=== PATIENT | female | born 1975 | race African-American/Black ===

== ENCOUNTER 2017-03-04 20:56 | Emergency (ER) | payer MEDICAID, OTHER ==
[~2017-03-04] VITALS: Ht 165.1 cm; Wt 117.9 kg
[~2017-03-04 20:56] MED LIST: ALBUTEROL SULF8.5 GM INH; IBUPROFEN600 MG ORAL; NAPROSYN500 M1 ORAL; NKM; NORCO 5-325 TA1 EACH ORAL; TRAMADOL HCL50 MG ORAL
--- NOTE | 2017-03-04 21:24 | Emergency Room Report ---
History of Present Illness General Chief Complaint: General Complaint Source: Patient Present Illness HPI Patient presents with bug bites on her lower extremities. There been itching and also she's had some pain in her left foot. Her tetanus is last 8 years ago. She's also complaining about headache. She claims the pain in her leg and foot is 10/10 (but is in no distress.) No calf swelling. No diabetes. H/O headaches. Daughter with bites also. No NVD, dysuria, joint pain, URI sy. Allergies: Coded Allergies: MORPHINE (Verified Allergy, 06/23/12) Patient History Past Medical History: see triage record Social History Narrative with daughter Last Menstrual Period: 02/18/17 Now: No Reviewed Nursing Documentation: PMH: Agreed, PSxH: Agreed Nursing Documentation-PMH Past Medical History: No Stated History Review of Systems All Other Systems: negative except mentioned in HPI Physical Exam Vital Signs Date Time Temp Pulse Resp B/P (MAP) Pulse Ox O2 Delivery O2 Flow Rate FiO2 03/04/17 21:09 98.1 79 16 156/89 100 Room Air Sp02 EP Interpretation: reviewed, normal General Appearance: well appearing, no apparent distress - not appear in pain, smiling Head: normocephalic, atraumatic Eyes: bilateral eye normal inspection, bilateral eye PERRL ENT: hearing grossly normal, normal voice, moist mucus membranes Neck: full range of motion, supple Respiratory: no respiratory distress, speaking full sentences Musculoskeletal: digits/nails normal, gait/station normal, normal range of motion, no calf tenderness, swelling - minimal dorsum L foot Neurologic: alert, motor strength/tone normal, sensory intact, normal gait Psychiatric: mood/affect normal Skin: other - excoriated bites without erythema Medical Decision Making Diagnostic Impression: Primary Impression: Bug bites Qualified Codes: W57.XXXA - Bitten or stung by nonvenomous insect and other nonvenomous arthropods, initial encounter Additional Impression: Headache Qualified Codes: R51 - Headache ER Course Patient with bug bite lesions. Complains of severe pain, but does not appear in distress. DDx: bites, cellulitis, other vasculitic process. VS without fever. No evidence of DVT. Indication for local care and analgesia. Tetanus updated. Patient stable for outpatient observation and treatment. Last Vital Signs Date Time Temp Pulse Resp B/P (MAP) Pulse Ox O2 Delivery O2 Flow Rate FiO2 03/04/17 22:08 98.1 79 16 156/89 100 Room Air Status: improved Disposition: HOME, SELF-CARE Condition: Improved Scripts Diphenhydramine Hcl* (BENADRYL*) 25 Mg Capsule 25 MG ORAL Q6H Y for Itching, #20 CAP Prov: Eleicer Mata M.D. 03/04/17 Bacitracin (Bacitracin) 28.4 Gm Oint...g. 1 APPLIC TOPIC BID, #10 GM Prov: Eliecer Mata M.D. 03/04/17 Acetaminophen (Tylenol) 325 Mg Tablet 650 MG ORAL Q6H Y for Prn Pain/Headache/Temp > 101, #30 TAB 0 Refills Prov: Eliecer Mata M.D. 03/04/17 Eliecer Mata M.D. Mar 04, 2017 21:24
[2017-03-04] MEDS ORDERED: BACITRACIN15 GM TOPIC (21:26)
[2017-03-04] MEDS ORDERED: BENADRYL25 MG ORAL (21:26)
[2017-03-04] MEDS ORDERED: TYLENOL325 MG ORAL (21:26)
[2017-03-04 21:28] VITALS: BP 156/89
[2017-03-04] MEDS ORDERED: Bacitracin Oint UD TOPIC ONE (21:30)
[2017-03-04] MEDS ORDERED: Tetanus/Diptheria/Pertussis Vaccine 0.5ml Syr IM ONE (21:30)
[2017-03-04 22:08] VITALS: BP 156/89
== END 2017-03-04 22:13 | disposition home or self-care (01) ==
LOC: EMR 21:50
DX: S80.862A Insect bite (nonvenomous), left lower leg, initial encounter (principal); R51 Headache; S80.861A Insect bite (nonvenomous), right lower leg, initial encounter; W57.XXXA Bitten or stung by nonvenomous insect and other nonvenomous arthropods, initial encounter; Y93.9 Activity, unspecified; Y92.9 Unspecified place or not applicable; Z88.6 Allergy status to analgesic agent; Z23 Encounter for immunization
CPT/HCPCS: 90471; 90715; 99284

== ENCOUNTER 2018-10-24 17:45 | Emergency (ER) | payer MEDICAID ==
[~2018-10-24] VITALS: Ht 162.6 cm; Wt 127.0 kg
[~2018-10-24 17:45] MED LIST changes: +BACITRACIN15 GM TOPIC; +BENADRYL25 MG ORAL; +TYLENOL325 MG ORAL
--- NOTE | 2018-10-24 18:07 | Emergency Room Report ---
History of Present Illness General Chief Complaint: Chest Pain Source: Patient, Significant Other, Medical Record Present Illness HPI Patient presented with chest pain mainly when she swallows and also much less so when she's breathing that's substernal. This started this morning. She had some back pain last night. She's been taking Gas-X and Tylenol and paty adrianne but they haven't helped at all. The pain is 10/10 at this time. Her risk factors for cardiac disease are smoking. Her last period was a week ago and normal for her she doesn't believe she is at this time. She denies any dysuria. She's been somewhat constipated recently but denies any diarrhea or melena. She denies recent alcohol ingestion. No fevers, chills, palpitations, nausea, vomiting, diarrhea, abdominal pain, shortness of breath, depression, visual changes, headache. Allergies: Coded Allergies: MORPHINE (Verified Allergy, 06/23/12) Patient History Past Medical History: see triage record Social History: Reports: smoking, drug use - [facility] Social History Narrative sig other Last Menstrual Period: 10/18/2018 Reviewed Nursing Documentation: PMH: Agreed; PSxH: Agreed Nursing Documentation-PMH Past Medical History: No History, Except For Review of Systems All Other Systems: negative except mentioned in HPI Physical Exam Vital Signs Date Time Temp Pulse Resp B/P (MAP) Pulse Ox O2 Delivery O2 Flow Rate FiO2 10/24/18 17:51 98.6 81 16 97 Room Air Sp02 EP Interpretation: reviewed, normal General Appearance: well appearing, no apparent distress, GCS 15 Head: normocephalic Eyes: bilateral eye normal inspection, bilateral eye PERRL, bilateral eye EOMI ENT: moist mucus membranes Neck: supple Respiratory: chest non-tender, lungs clear, normal breath sounds Cardiovascular #1: regular rate, rhythm Cardiovascular #2: 2+ radial (R) Gastrointestinal: normal inspection, normal bowel sounds, non tender, no mass, non-distended, overweight Genitourinary: no CVA tenderness Musculoskeletal: back normal, gait/station normal, normal range of motion Neurologic: alert, oriented x3, grossly normal Psychiatric: mood/affect normal Skin: normal inspection, warm/dry Medical Decision Making Diagnostic Impression: Primary Impression: Chest pain Qualified Codes: R07.89 - Other chest pain Additional Impression: Esophagitis ER Course Patient presents with substernal chest pain and also with swallowing. Differential includes acute myocardial infarction, GERD, esophageal spasm, pulmonary embolus, bronchitis, esophagitis amongst others. The patient will be evaluated with EKG, chest x-ray and labs. The patient will be treated with a, Mylanta and lidocaine and Zofran and a small dose of morphine. Based on VS and exam, PE unlikely. EKG sinus rhythm normal EKG. CXR no infiltrates. Normal white count. Minimal anemia. CMP with slightly elevated calcium. Urinalysis negative. Toxicology positive for THC. Refused IV. Medications ordered p.o. Pain now 08/02. Discussed findings. Patient requested more pain medication. [place] given. Patient stable for outpatient observation and treatment. Laboratory Tests Test 10/24/18 18:55 White Blood Count 10.0 K/UL (4.8-10.8) Red Blood Count 4.60 M/UL (4.20-5.40) Hemoglobin 10.2 G/DL (12.0-16.0) L Hematocrit 33.6 % (37.0-47.0) L Mean Corpuscular Volume 73 FL (80-99) L Mean Corpuscular Hemoglobin 22.2 PG (27.0-31.0) L Mean Corpuscular Hemoglobin Concent 30.4 G/DL (32.0-36.0) L Red Cell Distribution Width 16.7 % (11.6-14.8) H Platelet Count 252 K/UL (150-450) Mean Platelet Volume 5.2 FL (6.5-10.1) L Neutrophils (%) (Auto) 73.8 % (45.0-75.0) Lymphocytes (%) (Auto) 19.9 % (20.0-45.0) L Monocytes (%) (Auto) 5.2 % (1.0-10.0) Eosinophils (%) (Auto) 0.5 % (0.0-3.0) Basophils (%) (Auto) 0.7 % (0.0-2.0) Prothrombin Time 10.9 SEC (9.30-11.50) Prothrombin Time INR 1.0 (0.9-1.1) PTT 24 SEC (23-33) Sodium Level 138 MMOL/L (136-145) Potassium Level 3.9 MMOL/L (3.5-5.1) Chloride Level 105 MMOL/L (98-107) Carbon Dioxide Level 26 MMOL/L (21-32) Anion Gap 7 mmol/L (5-15) Blood Urea Nitrogen 5 mg/dL (7-18) L Creatinine 0.9 MG/DL (0.55-1.30) Estimate Glomerular Filtration Rate > 60 mL/min (>60) Glucose Level 87 MG/DL (74-106) Calcium Level 11.4 MG/DL (8.5-10.1) H Total Bilirubin 0.4 MG/DL (0.2-1.0) Aspartate Amino Transferase (AST) 11 U/L (15-37) L Alanine Aminotransferase (ALT) 17 U/L (12-78) Alkaline Phosphatase 92 U/L (46-116) Total Creatine Kinase 132 U/L (26-308) Troponin I 0.006 ng/mL (0.000-0.056) Pro-B-Type Natriuretic Peptide 25 pg/mL (0-125) Total Protein 7.6 G/DL (6.4-8.2) Albumin 3.5 G/DL (3.4-5.0) Globulin 4.1 g/dL Albumin/Globulin Ratio 0.9 (1.0-2.7) L EKG Diagnostic Results Rate: normal Rhythm: NSR ST Segments: no acute changes Rhythm Strip Diag. Results EP Interpretation: yes Rhythm: NSR, no PVC's, no ectopy Chest X-Ray Diagnostic Results Chest X-Ray Diagnostic Results : Chest X-Ray Ordered: Yes # of Views/Limited/Complete: 1 View Indication: Chest Pain EP Interpretation: Yes Interpretation: no consolidation, no effusion, no pneumothorax Impression: No acute disease Electronically Signed by: Electronically signed by Eliecer Mata MD Last Vital Signs Date Time Temp Pulse Resp B/P (MAP) Pulse Ox O2 Delivery O2 Flow Rate FiO2 10/24/18 20:49 98.6 16 137/85 97 Room Air 10/24/18 19:10 81 Status: improved Disposition: HOME, SELF-CARE Condition: Improved Scripts Mag Hydrox/Al Hydrox/Simeth (MAALOX MAXIMUM STRENGTH SUSP) 355 Ml Oral.susp 30 ML PO Q6HR PRN for For Pain, #240 ML Prov: Eliecer Mata MD 10/24/18 Famotidine (PEPCID AC) 20 Mg Tablet 20 MG PO DAILY, #20 TAB Prov: Eliecer Mata MD 10/24/18 Hydrocodone Bit/Acetaminophen 5-325* (NORCO 5-325*) 1 Each Tablet 1 TAB ORAL Q6H PRN for For Pain, #8 TAB 0 Refills Prov: Eliecer Mata MD 10/24/18 Eliecer Mata MD October 24, 2018 18:07
[2018-10-24] MEDS ORDERED: Lidocaine 2% Visc 15ml soln ORAL ONE (18:15)
[2018-10-24] MEDS ORDERED: Mylanta II UD 30ml ORAL ONE (18:15)
[2018-10-24] MEDS ORDERED: fentaNYL 100 mcg/2 mL IV ONE (18:15)
[2018-10-24] MEDS ORDERED: oxyCODONE HCL/Acetaminophen 5/325mg ORAL ONE (18:30)
[2018-10-24 19:05] LABS: BASOPHILS % (AUTO) 0.7 % (0.0-2.0); EOSINOPHILS % (AUTO) 0.5 % (0.0-3.0); HEMATOCRIT 33.6 % (37.0-47.0); HEMOGLOBIN 10.2 G/DL (12.0-16.0); LYMPHOCYTES % (AUTO) 19.9 % (20.0-45.0); MEAN CORPUSCULAR VOLUME 73 FL (80-99); MONOCYTES % (AUTO) 5.2 % (1.0-10.0); NEUTROPHILS % (AUTO) 73.8 % (45.0-75.0); PLATELET COUNT 252 K/UL (150-450); RED CELL DISTRIBUTION WIDTH 16.7 % (11.6-14.8)
[2018-10-24 19:10] VITALS: BP 137/85
[2018-10-24 19:17] LABS: ANION GAP 7 mmol/L (5-15); BLOOD UREA NITROGEN 5 mg/dL (7-18); CALCIUM 11.4 MG/DL (8.5-10.1); CARBON DIOXIDE 26 MMOL/L (21-32); CHLORIDE 105 MMOL/L (98-107); CREATININE 0.9 MG/DL (0.55-1.30); POTASSIUM 3.9 MMOL/L (3.5-5.1); SODIUM 138 MMOL/L (136-145)
[2018-10-24 19:28] LABS: ALANINE AMINOTRANSFERASE 17 U/L (12-78); ALBUMIN 3.5 G/DL (3.4-5.0); ALBUMIN/GLOBULIN RATIO 0.9 (1.0-2.7); ALKALINE PHOSPHATASE 92 U/L (46-116); ASPARTATE AMINO TRANSFERASE 11 U/L (15-37); BILIRUBIN,TOTAL 0.4 MG/DL (0.2-1.0); CREATINE KINASE 132 U/L (26-308)
[2018-10-24] MEDS ORDERED: NORCO 5-325 TA1 EACH ORAL (20:16)
[2018-10-24] MEDS ORDERED: PEPCID AC20 M2 PO (20:16)
[2018-10-24] MEDS ORDERED: MAALOX MAXIMUM355 M1 PO (20:16)
[2018-10-24] MEDS ORDERED: HYDROcodone/Acetamin 5/325 tab ORAL ONE (20:30)
[2018-10-24 20:36] LABS: APPEARANCE,URINE CLEAR; BILIRUBIN, URINE NEGATIVE (NEGATIVE); COLOR,URINE PALE YELLOW; GLUCOSE, URINE (UA) NEGATIVE (NEGATIVE); KETONES,URINE NEGATIVE (NEGATIVE); LEUKOCYTE ESTERASE ,URINE NEGATIVE (NEGATIVE); NITRITE,URINE NEGATIVE (NEGATIVE); PH,URINE 6.5 (4.5-8.0); PROTEIN,URINE NEGATIVE (NEGATIVE); UROBILINOGEN,URINE NORMAL MG/DL (0.0-1.0)
[2018-10-24 20:49] VITALS: BP 137/85
--- NOTE | 2018-10-25 23:53 | Diagnostic Imaging Report ---
EXAM: XR Chest, 1 View CLINICAL HISTORY: CP TECHNIQUE: Frontal view of the chest. COMPARISON: No relevant prior studies available. FINDINGS: Lungs: No consolidation. Pleural space: Unremarkable. No pneumothorax. Heart: Unremarkable. No cardiomegaly. Mediastinum: Unremarkable. Bones/joints: No acute fracture. IMPRESSION: No acute cardiopulmonary disease.
== END 2018-10-24 22:40 | disposition home or self-care (01) ==
LOC: EMR 18:02
DX: R07.89 Other chest pain (principal); K20.9 Esophagitis, unspecified; F17.200 Nicotine dependence, unspecified, uncomplicated; F12.10 Cannabis abuse, uncomplicated; Z88.6 Allergy status to analgesic agent
CPT/HCPCS: 36415; 71045; 80053; 80307; 81003; 81025; 82550; 83880; 84484; 85025; 85610; 85730; 93005; 96374; 96375; 99284

== ENCOUNTER 2019-01-01 22:20 | Emergency (ER) | payer MEDICAID ==
[~2019-01-01] VITALS: Ht 162.6 cm; Wt 117.9 kg
[~2019-01-01 22:20] MED LIST changes: +MAALOX MAXIMUM355 M1 PO; +PEPCID AC20 M2 PO
--- NOTE | 2019-01-01 22:30 | NUR ---
ED Nurse Note: Patient presents with complaints of abdominal pain x 1 day with vomiting.
[2019-01-01 22:32] VITALS: BP 142/76
--- NOTE | 2019-01-01 22:42 | Emergency Room Report ---
History of Present Illness General Chief Complaint: Abdominal Pain Source: Patient, Medical Record Present Illness HPI This is a 43-year-old female with no past medical history. She did have a previous section. She presents with chief complaint abdominal pain with vomiting. Onset last night. Any keep anything down. Pain is periumbilical and 8 out of 10. No diarrhea. She thought it may been secondary to taking too much Advil. She had a toothache on her left upper jaw area. She took a whole bottle of [id number] Advil. There was about 20 to 30 tablets in it. Denies any other complaint. No urinary complaint. No bleeding. No diarrhea. Allergies: Coded Allergies: MORPHINE (Verified Allergy, 06/23/12) Patient History Past Medical History: see triage record, old chart reviewed Past Surgical History: Pertinent Family History: none Social History: Denies: smoking Last Menstrual Period: 12/15/18 Now: No : 4 Para: 4 Immunizations: other Reviewed Nursing Documentation: PMH: Agreed; PSxH: Agreed Review of Systems Eye: Denies: eye pain, blurred vision ENT: Denies: ear pain, nose congestion, throat swelling Respiratory: Denies: cough, shortness of breath Cardiovascular: Denies: chest pain, palpitations Gastrointestinal: Reports: abdominal pain, nausea, vomiting; Denies: diarrhea Musculoskeletal: Denies: back pain, joint pain Skin: Denies: rash Neurological: Denies: headache, numbness Endocrine: Denies: increased thirst, increased urine Hematologic/Lymphatic: Denies: easy bruising All Other Systems: negative except mentioned in HPI Physical Exam Vital Signs Date Time Temp Pulse Resp B/P (MAP) Pulse Ox O2 Delivery O2 Flow Rate FiO2 01/01/19 22:30 100.0 78 18 142/76 (98) 100 Room Air Vitals unremarkable. Does have low-grade fever Sp02 EP Interpretation: reviewed, normal General Appearance: well appearing, no apparent distress, alert, obese Head: normocephalic, atraumatic Eyes: bilateral eye PERRL, bilateral eye EOMI ENT: hearing grossly normal, normal pharynx Neck: full range of motion, supple, no meningismus Respiratory: chest non-tender, lungs clear, normal breath sounds Cardiovascular #1: regular rate, rhythm, no murmur Gastrointestinal: normal bowel sounds, no mass, no organomegaly, no bruit, non- distended, abnormal bowel sounds, tenderness - Periumbilical, decreased bowel sounds Musculoskeletal: back normal, gait/station normal, normal range of motion Neurologic: alert, oriented x3 Psychiatric: mood/affect normal Medical Decision Making Diagnostic Impression: Primary Impression: Abdominal pain Qualified Codes: R10.84 - Generalized abdominal pain Additional Impression: UTI (urinary tract infection) Qualified Codes: N30.00 - Acute cystitis without hematuria ER Course Patient presents with abdominal pain. No evidence of an acute abdomen. She is no longer vomiting here. Pain is well controlled. No obstruction. Will discharge home. CT/MRI/US Diagnostic Results CT/MRI/US Diagnostic Results : Imaging Test Ordered: CT abdomen pelvis Impression Negative per radiologist Last Vital Signs Date Time Temp Pulse Resp B/P (MAP) Pulse Ox O2 Delivery O2 Flow Rate FiO2 01/01/19 22:30 100.0 78 18 142/76 (98) 100 Room Air Status: improved Disposition: HOME, SELF-CARE Condition: Stable Scripts Nitrofurantoin Monohyd/M-Cryst (Nitrofurantoin [place]-Mcr 100 mg) 100 Mg Capsule 100 MG ORAL Q12H, #14 CAP Prov: Gilberto Vernon MD 01/02/19 Hydrocodone/Acetaminophen 5-325* (HYDROCODONE/ACETAMINOPHEN 5-325*) 1 Each Tablet 1 TAB ORAL Q6H PRN for For Pain, #10 TAB 0 Refills Prov: Gilberto Vernon MD 01/02/19 Patient Instructions: Abdominal Pain, Adult Additional Instructions: Follow-up with your doctor in 3 to 5 days. Return if symptoms worsen. Gilberto Vernon MD Jan 01, 2019 22:42
[2019-01-01] MEDS ORDERED: HYDROmorphone 1mg/ml Carpuject IVP ONE (22:45)
[2019-01-01 23:01] LABS: BASOPHILS % (AUTO) 0.9 % (0.0-2.0); EOSINOPHILS % (AUTO) 0.2 % (0.0-3.0); LYMPHOCYTES % (AUTO) 15.5 % (20.0-45.0); MEAN CORPUSCULAR VOLUME 75 FL (80-99); MONOCYTES % (AUTO) 4.1 % (1.0-10.0); NEUTROPHILS % (AUTO) 79.4 % (45.0-75.0); PLATELET COUNT 304 K/UL (150-450); RED BLOOD COUNT 4.78 M/UL (4.20-5.40); WHITE BLOOD COUNT 10.7 K/UL (4.8-10.8)
[2019-01-01 23:07] LABS: ANION GAP 11 mmol/L (5-15); BLOOD UREA NITROGEN 8 mg/dL (7-18); CALCIUM 11.3 MG/DL (8.5-10.1); CARBON DIOXIDE 25 MMOL/L (21-32); CHLORIDE 103 MMOL/L (98-107); CREATININE 0.9 MG/DL (0.55-1.30); POTASSIUM 4.2 MMOL/L (3.5-5.1); SODIUM 138 MMOL/L (136-145)
[2019-01-01 23:12] LABS: ALANINE AMINOTRANSFERASE 11 U/L (12-78); ALBUMIN 4.2 G/DL (3.4-5.0); ALKALINE PHOSPHATASE 100 U/L (46-116); ASPARTATE AMINO TRANSFERASE 14 U/L (15-37); BILIRUBIN,TOTAL 0.7 MG/DL (0.2-1.0)
[2019-01-01] MEDS ORDERED: HYDROmorphone 1mg/ml Carpuject IM ONE (23:15)
--- NOTE | 2019-01-01 23:30 | NUR ---
ED Nurse Note: Patient refuses Iv, IM and PO meds given. Boyfriend at bedside.
[2019-01-02 00:11] LABS: APPEARANCE,URINE CLOUDY; BILIRUBIN, URINE NEGATIVE (NEGATIVE); COLOR,URINE PALE YELLOW; GLUCOSE, URINE (UA) NEGATIVE (NEGATIVE); KETONES,URINE 3+ (NEGATIVE); LEUKOCYTE ESTERASE ,URINE 1+ (NEGATIVE); NITRITE,URINE NEGATIVE (NEGATIVE); PH,URINE 7 (4.5-8.0); PROTEIN,URINE 2+ (NEGATIVE); UROBILINOGEN,URINE 1 MG/DL (0.0-1.0)
--- NOTE | 2019-01-02 00:30 | NUR ---
ED Nurse Note: Patient sleeping comfortably, no s/s of acute distress.
[2019-01-02] MEDS ORDERED: MACROBID100 MG ORAL (01:06)
[2019-01-02] MEDS ORDERED: HYDROCODON-ACE1 EA15 ORAL (01:06)
[2019-01-02] MEDS ORDERED: ZOFRAN4 MG ORAL (01:13)
[2019-01-02 01:15] VITALS: BP 142/76
--- NOTE | 2019-01-02 01:15 | NUR ---
ED Nurse Note: PAtient cleared for discharge, verbalized understanding of discharge instructions. ID band removed. Patient request for nausea medication relayed to ERMD and supplied. PAtient departed with all belongings to boyfriend who is in care for transport.
--- NOTE | 2019-01-02 09:14 | Diagnostic Imaging Report ---
Indication: Abdominal pain Technique: Continuous helical transaxial imaging of the abdomen and pelvis was obtained from the lung bases to the pubic symphysis. No intravenous contrast was administered. Coronal 2-D reformats were also obtained. Automatic Exposure Control was utilized. Total Dose length Product (DLP): 1787.[address] Dose Index Volume (CTDIvol): 32.8 mGy Comparison: none Findings: The lung bases are clear. Noncontrast solid organ evaluation is grossly negative. There is no nephrolithiasis or hydronephrosis. There is an appendicolith at the tip of the appendix with the otherwise normal-appearing appendix with no inflammation to suggest acute appendicitis. Intraluminal air noted in the appendix. Bowel gas pattern is nonobstructive. There is no free fluid. Uterus noted. IMPRESSION: No acute findings. [facility] has communicated the preliminary results to the Emergency Department. Their findings are largely concordant with this report. The CT scanner at [facility] is accredited by the [employer] and the scans are performed using dose optimization techniques as appropriate to a performed exam including Automatic Exposure control.
== END 2019-01-02 01:18 | disposition home or self-care (01) ==
LOC: EMR 22:56
DX: R10.84 Generalized abdominal pain (principal); N30.00 Acute cystitis without hematuria; Z88.6 Allergy status to analgesic agent; R68.84 Jaw pain
CPT/HCPCS: 36415; 74176; 80053; 81003; 81025; 83690; 85025; 87086; 87181; 96361; 96372; 96374; 96375; 99284; J1170

== ENCOUNTER 2019-03-29 11:24 | Emergency (ER) | payer MEDICAID ==
[~2019-03-29] VITALS: Ht 162.6 cm; Wt 98.0 kg
[~2019-03-29 11:24] MED LIST changes: +HYDROCODON-ACE1 EA15 ORAL; +MACROBID100 MG ORAL; +ZOFRAN4 MG ORAL
[2019-03-29] MEDS ORDERED: NKM (11:34)
[2019-03-29] MEDS ORDERED: Ketorolac 30mg Inj IM ONE (12:15)
[2019-03-29] MEDS ORDERED: Cyclobenzaprine 10mg Tab ORAL ONE (12:15)
[2019-03-29 12:23] VITALS: BP 147/91
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
--- NOTE | 2019-03-29 12:31 | NUR ---
ER DISCHARGE NOTE: Patient is cleared to be discharged per ERMD, pt is aox4, on room air, with stable vital signs. pt was given dc and prescription instructions, pt was able to verbalize understanding, pt is able to ambulate with steady gait. pt took all belongings.
--- NOTE | 2019-03-29 13:05 | NUR ---
ED Nurse Note:pt. had x-rays done and received pain meds
[2019-03-29] MEDS ORDERED: CYCLOBENZAPRINE10 MG ORAL (13:27)
[2019-03-29] MEDS ORDERED: IBUPROFEN600 MG ORAL (13:27)
--- NOTE | 2019-03-29 13:28 | Diagnostic Imaging Report ---
Indication: Right shoulder pain Technique: 3 views of the right shoulder Comparison: none Findings: No acute fractures. No dislocations. The joint spaces are preserved Impression: Negative
[2019-03-29 13:36] VITALS: BP 147/91
[2019-04-06] MEDS ORDERED: NKM (12:17)
[2019-04-06] MEDS ORDERED: AUGMENTIN 875-1 EAC1 ORAL (13:52)
[2019-04-06] MEDS ORDERED: IBU800 MG PO (13:52)
[2019-04-07] MEDS ORDERED: TYLENOL EXTRA500 MG ORAL (19:40)
[2019-04-07] MEDS ORDERED: ZOFRAN4 M1 ORAL (19:40)
[2019-04-07] MEDS ORDERED: OMEPRAZOLE20 M3 ORAL (19:40)
== END 2019-03-29 13:38 | disposition home or self-care (01) ==
LOC: EMR 12:00
DX: S43.401A Unspecified sprain of right shoulder joint, initial encounter (principal); Z88.6 Allergy status to analgesic agent; V47.5XXA Car driver injured in collision with fixed or stationary object in traffic accident, initial encounter; Y92.410 Unspecified street and highway as the place of occurrence of the external cause
CPT/HCPCS: 73030; 96372; J1885; Z7502; 99283